=== PATIENT | male | born 1955 | race American Indian/Alaskan Native ===

== ENCOUNTER 2020-08-24 17:06 | Emergency (ER) | payer SELFPAY ==
--- NOTE | 2020-08-24 17:21 | Emergency Department Report ---
ED Extremity Problem HPI - General Stated complaint: LAC TO LT FOREARM Time Seen by Provider: 08/24/20 17:15 - History of Present Illness Initial comments: 64-year-old male, no past medical history, presents to ED for left wrist laceration. Patient states he was hanging a window when the glass broke and it fell onto his left wrist. Patient is actively bleeding. States it happened approximately 30 minutes ago. Patient is able to move all 5 fingers. He denies any numbness or tingling. MD Complaint: extremity pain -: minutes(s) (30) Location: left, upper extremity History of Same: No Radiation: none Quality: aching Consistency: constant Improves with: immobilization Worsens with: palpation, other (movement) Associated Symptoms: denies other symptoms - Related Data Previous Rx's Medication Instructions Recorded Last Taken Type Naproxen [Naprosyn] 500 mg PO BID #20 tablet 08/24/20 Unknown Rx cephALEXin [Keflex] 500 mg PO Q12HR 5 Days #10 cap 08/24/20 Unknown Rx traMADoL [Ultram] 50 mg PO Q6HR PRN #7 tablet 08/24/20 Unknown Rx Allergies Allergy/AdvReac Type Severity Reaction Status Date / Time No Known Allergies Allergy Unverified 08/24/20 17:39 ED Review of Systems ROS: Stated complaint: LAC TO LT FOREARM Other details as noted in HPI Comment: All other systems reviewed and negative Musculoskeletal: as per HPI Skin: as per HPI Neurological: denies: weakness, numbness, paresthesias ED Past Medical Hx - Medications Home Medications: Home Medications Medication Instructions Recorded Confirmed Last Taken Type Naproxen [Naprosyn] 500 mg PO BID #20 tablet 08/24/20 Unknown Rx cephALEXin [Keflex] 500 mg PO Q12HR 5 Days #10 cap 08/24/20 Unknown Rx traMADoL [Ultram] 50 mg PO Q6HR PRN #7 tablet 08/24/20 Unknown Rx ED Physical Exam - General General appearance: alert, in no apparent distress - Head Head exam: Present: atraumatic, normocephalic - Eye Eye exam: Present: normal appearance, EOMI - ENT ENT exam: Present: mucous membranes moist - Neck Neck exam: Present: normal inspection - Respiratory Respiratory exam: Present: normal lung sounds bilaterally. Absent: respiratory distress - Cardiovascular Cardiovascular Exam: Present: regular rate, normal rhythm, other (strong left radial pulse palpable) - GI/Abdominal GI/Abdominal exam: Absent: distended - Extremities Exam Extremities exam: Present: other (approx 7 cm laceration to left wrist; able to flex and extend all 5 fingers of left hand; able to make a fist) - Neurological Exam Neurological exam: Present: alert, oriented X3. Absent: motor sensory deficit - Psychiatric Psychiatric exam: Present: normal affect, normal mood - Skin Skin exam: Present: other (approx 7 cm laceration to left wrist) ED Course Vital Signs 08/24/20 08/24/20 08/24/20 17:42 17:45 18:01 Temperature 98 F Pulse Rate 77 75 72 Respiratory 16 18 13 Rate Blood Pressure Blood Pressure 135/72 [Right] O2 Sat by Pulse 100 99 96 Oximetry 08/24/20 08/24/20 08/24/20 18:15 18:31 18:45 Temperature Pulse Rate 67 66 65 Respiratory 13 15 13 Rate Blood Pressure Blood Pressure [Right] O2 Sat by Pulse 100 98 99 Oximetry 08/24/20 08/24/20 08/24/20 19:01 19:15 19:30 Temperature Pulse Rate 65 63 64 Respiratory 14 15 18 Rate Blood Pressure 142/80 139/77 Blood Pressure [Right] O2 Sat by Pulse 99 99 98 Oximetry 08/24/20 08/24/20 08/24/20 19:45 20:00 20:15 Temperature Pulse Rate 70 61 57 L Respiratory 15 16 16 Rate Blood Pressure 143/79 145/81 136/74 Blood Pressure [Right] O2 Sat by Pulse 99 100 97 Oximetry - Laceration /Wound Repair Left Wrist Wound Location: upper extremity Wound Length (cm): 7 Wound's Depth, Shape: linear Wound Explored: clean Irrigated w/ Saline (ccs): 1,000 Betadine Prep?: No Anesthesia: Lidocaine w/ Epi Volume Anesthetic (ccs): 7 Wound Debrided: minimal Wound Repaired With: sutures Suture Size/Type: 3:0, proline Number of Sutures: 9 Deep Layer Suture Size/Type: 4:0 Number Deep Layer Sutures: 5 (vicryl) Sterile Dressing Applied?: Yes ED Medical Decision Making - Radiology Data Radiology results: report reviewed, image reviewed - Medical Decision Making 64-year-old male with laceration to left wrist after a glass window fell on it. Patient is neurovascularly intact. X-ray normal. Wound was irrigated and repaired with sutures. Patient given IV Ancef. On reexamination following suture placement, motor and sensory remain intact in the left arm and hand. Patient will be discharged at this time with prescriptions. Patient follow-up advised, return precautions given. - Differential Diagnosis Laceration, fracture, contusion Critical care attestation.: If time is entered above; I have spent that time in minutes in the direct care of this critically ill patient, excluding procedure time. ED Disposition Clinical Impression: Laceration of left wrist Disposition: TO HOME OR SELFCARE Is pt being admited?: No Condition: Stable Instructions: Laceration Care, Adult, [id number], Sutured Wound Care, [id number] Additional Instructions: Sutures will need to be removed in 7-10 days. Prescriptions: cephALEXin [Keflex] 500 mg PO Q12HR 5 Days #10 cap Naproxen [Naprosyn] 500 mg PO BID #20 tablet traMADoL [Ultram] 50 mg PO Q6HR PRN #7 tablet PRN Reason: Pain Referrals: [facility] [Provider Group] - 3-5 Days Time of Disposition: 19:00
[2020-08-24] MEDS ORDERED: SODIUM CHLORIDE 0.9% 1000 ML 1,000 ML IV ONE (17:40)
[2020-08-24] MEDS ORDERED: LIDOCAINE 1%/EPINEPHRINE 1:100,000 VIAL (20 ML) INFILTRATI ONE (17:53)
[2020-08-24] MEDS ORDERED: SODIUM CHLORIDE IRRI 500 ML 1,000 ML IR ONE (17:53)
--- NOTE | 2020-08-24 17:54 | XRay Report ---
LEFT WRIST 3 VIEWS INDICATION / CLINICAL INFORMATION: Laceration; window fell on wrist. COMPARISON: None available. FINDINGS: BONES / JOINT(S): No acute fracture or subluxation. No significant arthritis. SOFT TISSUES: There is a bandage overlying the wrist. I do not identify a radiopaque foreign body. ADDITIONAL FINDINGS: None. Signer Name: Gian Beach MD Signed: 08/24/2020 5:49 PM Workstation Name: [id number]
[2020-08-24] MEDS ORDERED: TETANUS,DIPH,PERTUSS(ACELL) VACCINE 0.5 ML SYRINGE IM ONE (18:00)
[2020-08-24] MEDS ORDERED: ceFAZolin/NS 1 GM/50 ML 1 GM/50 ML BAG IV ONE (18:00)
[2020-08-24] MEDS ORDERED: MORPHINE 2 MG/1 ML INJ IV ONE (18:00)
[2020-08-24 21:10] VITALS: BP 136/74
== END 2020-08-24 20:20 | disposition home or self-care (01) ==
LOC: ED 17:06
DX: S61.512A Laceration without foreign body of left wrist, initial encounter (principal); Z79.899 Other long term (current) drug therapy; W25.XXXA Contact with sharp glass, initial encounter; Y93.89 Activity, other specified; Y92.89 Other specified places as the place of occurrence of the external cause; Y99.8 Other external cause status
CPT/HCPCS: 12002; 73110; 90471; 90715; 96365; 96375; 99283; J0690; J2270; J7030

== ENCOUNTER 2020-09-25 14:45 | Emergency (ER) | payer SELFPAY ==
--- NOTE | 2020-09-25 16:23 | Emergency Department Report ---
Suture/Staple Removal - [facility] Chief Complaint: Skin/Abscess/Foreign Body Stated Complaint: REMOVE SUTURES LT WRIST Time Seen by Provider: 09/25/20 16:21 When Sutures or [place] Placed: 08/24/2020 Wound Location: left wrist ED Review of Systems ROS: Stated complaint: REMOVE SUTURES LT WRIST Other details as noted in HPI Comment: All other systems reviewed and negative ED Past Medical Hx - Past Medical History Previous Medical History?: No - Surgical History Past Surgical History?: No - Social History Smoking Status: Never Smoker Substance Use Type: None - Medications Home Medications: Home Medications Medication Instructions Recorded Confirmed Last Taken Type Naproxen [Naprosyn] 500 mg PO BID #20 tablet 08/24/20 Unknown Rx cephALEXin [Keflex] 500 mg PO Q12HR 5 Days #10 cap 08/24/20 Unknown Rx traMADoL [Ultram] 50 mg PO Q6HR PRN #7 tablet 08/24/20 Unknown Rx Suture Removal Exam - Exam General: Vital signs noted. No distress. Alert and acting appropriately. Wound: No Pathologic Erythema, No Tenderness, No Drainage, No Pus, No Wound Dehiscence Other Systems: All other systems reviewed and are unremarkable. ED Course Vital Signs 09/25/20 15:46 Temperature 98.3 F Pulse Rate 64 Respiratory 18 Rate Blood Pressure 115/69 O2 Sat by Pulse 98 Oximetry ED Recheck MDM - Medical Decision Making Patient presents for suture removal to the left wrist. He has no signs of infection, no signs of wound dehiscence. All sutures removed without difficulty or complication. advised pt may use Mederma [id number] to help with scarring. Follow-up with your primary care doctor. Return to emergency room for new or worsening symptoms. Critical care attestation.: If time is entered above; I have spent that time in minutes in the direct care of this critically ill patient, excluding procedure time. ED Disposition Clinical Impression: Encounter for removal of sutures Disposition: DC-01 TO HOME OR SELFCARE Is pt being admited?: No Does the pt Need Aspirin: No Condition: Stable Instructions: Suture Removal, Care After Additional Instructions: may use Mederma [id number] to help with scarring. Follow-up with your primary care doctor. Return to emergency room for new or worsening symptoms. Referrals: your, primary care doctor [Other] - 3-5 Days Time of Disposition: 16:22 Print Language: [place]
[2020-09-25 18:53] VITALS: BP 132/72
== END 2020-09-25 17:00 | disposition home or self-care (01) ==
LOC: ED 14:45
DX: S51.812D Laceration without foreign body of left forearm, subsequent encounter (principal); Z48.02 Encounter for removal of sutures; Z79.899 Other long term (current) drug therapy; X58.XXXD Exposure to other specified factors, subsequent encounter